=== PATIENT | male | born 1985 | race Two or more races ===

== ENCOUNTER 2018-01-26 16:44 | Emergency (ER) | payer BC ==
[~2018-01-26] VITALS: Ht 180.3 cm; Wt 86.2 kg
--- NOTE | 2018-01-26 17:00 | NUR ---
AAOX3, CAME TO ER C/O WORSENING RLQ ABDOMINAL PAIN X 2 DAYS, DENIES NAUSEA/VOMITING/DIARRHEA. SKIN IS WARM AND DRY. RESP IS EVEN AND UNLABORED WITH NAD NOTED. AWAITING MD FOR EVAL.
--- NOTE | 2018-01-26 17:10 | NUR ---
RENATA ENGINE ROOM HELPER AT BS FOR EVAL.
[2018-01-26] MEDS: IV NS 0.9% 1,000 ML BAG IV ONE (17:30)
[2018-01-26] MEDS: MORPHINE SULFATE INJ 2 MG/ML DISP.SYRIN IV ONE (17:30)
[2018-01-26] MEDS: ONDANSETRON HCL/PF 4 MG/2 ML VIAL IVP ONE (17:30)
[2018-01-26 17:31] LABS: BASOPHILS % (AUTO) 0.5 % (0.0-2.0); EOSINOPHILS % (AUTO) 3.4 % (0.0-6.0); HEMATOCRIT 37 % (39-51); HEMOGLOBIN 12.9 g/dL (13.5-17.5); LYMPHOCYTES # (AUTO) 2.6 /CMM (0.8-4.8); LYMPHOCYTES % (AUTO) 51.2 % (20.0-44.0); MEAN CORPUSCULAR HGB CONC 35 g/dl (31.0-36.0); MEAN CORPUSCULAR VOLUME 85 fL (80-96); MONOCYTES # (AUTO) 0.3 /CMM (0.1-1.30); MONOCYTES % (AUTO) 6.9 % (2.0-12.0); NEUTROPHILS # (AUTO) 1.9 /CMM (1.8-8.9); PLATELET COUNT (AUTO) 189 /CMM (150-450); RDW COEFFICIENT OF VARIATION 12.7 (11.5-15.0); RED BLOOD CELL COUNT(AUTO) 4.37 MIL/uL (4.5-6.0)
[2018-01-26 17:46] LABS: ALBUMIN 3.8 g/dL (3.4-5.0); BILIRUBIN,DIRECT 0.4 mg/dL (0.0-0.2); BILIRUBIN,TOTAL 2.3 mg/dL (0.2-1.0); CREATININE 0.9 mg/dL (0.6-1.3); POTASSIUM 3.9 mmol/L (3.5-5.1); TOTAL PROTEIN, SERUM 7.5 g/dL (6.4-8.2)
[2018-01-26 17:56] LABS: APPEARANCE,URINE Clear (CLEAR); BILIRUBIN,URINE Negative (NEGATIVE); BLOOD, URINE Negative Ery/uL (NEGATIVE); COLOR,URINE Yellow (YELLOW); KETONES,URINE Negative (NEGATIVE); LEUKOCYTE ESTERASE ,URINE Negative (NEGATIVE); NITRITE, URINE Negative (NEGATIVE); PROTEIN,URINE Negative (NEGATIVE); UGLUCOSE Negative (NEGATIVE); UROBILINOGEN,URINE 0.2 EU/dL (0.2)
[2018-01-26] MEDS ORDERED: IOHEXOL-300 100 ML VIAL IV ONE (18:45)
--- NOTE | 2018-01-26 18:57 | NUR ---
PATIENT CAME BACK FROM CT.
--- NOTE | 2018-01-26 19:04 | NUR ---
REPORT GIVEN TO DIANA MILTON FOR [facility].
--- NOTE | 2018-01-26 19:16 | NUR ---
RECEIVED REPORT FROM DIANA MARIE FOR [facility]. PT APPEARS COMFORTABLE. GIRLFRIEND AT BEDSIDE
--- NOTE | 2018-01-26 19:36 | NUR ---
IV removed. Catheter intact and site benign. Pressure and 4x4 applied to site. No bleeding noted. Patient discharged to home in stable condition. Written and verbal after care instructions given. Patient verbalizes understanding of instruction. ambulatory with a steady gait
[2018-01-26 19:37] VITALS: BP 115/62
== END 2018-01-26 19:38 | disposition home or self-care (01) ==
LOC: ER 16:46
DX: R10.31 Right lower quadrant pain (principal); R17 Unspecified jaundice; F10.10 Alcohol abuse, uncomplicated; Z98.890 Other specified postprocedural states
CPT/HCPCS: 36415; 76705-TC; 80048-TC; 80076-TC; 81000-TC; 83690-TC; 85025-TC; 85730-TC; A4606; J7030; Q9967; Z7610

== ENCOUNTER 2022-01-17 17:19 | Emergency (ER) | payer BC ==
[~2022-01-17] VITALS: Ht 180.3 cm; Wt 91.6 kg
--- NOTE | 2022-01-17 17:40 | NUR ---
To ER bed 11, c/o epigastric pain since this morning around 1130 am, +nausea, happened last week also but went away. This time the pain felt like "i was going to pass out". Pain level upon assessment at 09/03. aaox3, breathing even and non labored.
--- NOTE | 2022-01-17 17:42 | NUR ---
URINE SPECIMEN COLLECTED AND SENT TO LAB.
[2022-01-17 18:29] LABS: BILIRUBIN,URINE NEGATIVE (NEGATIVE); COLOR,URINE YELLOW (YELLOW); LEUKOCYTE ESTERASE ,URINE NEGATIVE (NEGATIVE); NITRITE, URINE NEGATIVE (NEGATIVE); PROTEIN,URINE NEGATIVE (NEGATIVE); UGLUCOSE NEGATIVE (NEGATIVE); UROBILINOGEN,URINE 0.2 EU/dL (0.2)
[2022-01-17 18:30] LABS: BASOPHILS % (AUTO) 0.3 % (0.0-2.0); EOSINOPHILS % (AUTO) 6.6 % (0.0-6.0); HEMATOCRIT 48 % (39-51); HEMOGLOBIN 15.9 g/dL (13.5-17.5); LYMPHOCYTES # (AUTO) 2.7 K/uL (0.8-4.8); LYMPHOCYTES % (AUTO) 32.6 % (20.0-44.0); MEAN CORPUSCULAR HGB CONC 33 g/dl (31.0-36.0); MEAN CORPUSCULAR VOLUME 87 fL (80-96); MONOCYTES # (AUTO) 0.4 K/uL (0.1-1.30); MONOCYTES % (AUTO) 5.1 % (2.0-12.0); NEUTROPHILS # (AUTO) 4.6 K/uL (1.8-8.9); NEUTROPHILS % (AUTO) 55.4 % (43.0-81.0); PLATELET COUNT (AUTO) 224 K/uL (150-450); RED BLOOD CELL COUNT(AUTO) 5.52 MIL/uL (4.5-6.0); WHITE BLOOD COUNT (AUTO) 8.3 K/uL (4.3-11.0)
[2022-01-17 18:50] LABS: CALCIUM, SERUM 9.1 mg/dL (8.5-10.1); POTASSIUM 3.6 mmol/L (3.5-5.1)
[2022-01-17 18:55] LABS: ALBUMIN 4.4 g/dL (3.4-5.0); BILIRUBIN,DIRECT 0.2 mg/dL (0.0-0.2); BILIRUBIN,TOTAL 1.5 mg/dL (0.2-1.0); TOTAL PROTEIN, SERUM 7.7 g/dL (6.4-8.2)
[2022-01-17 19:59] VITALS: BP 135/70
--- NOTE | 2022-01-17 19:59 | NUR ---
Patient discharged to home in stable condition. Written and verbal after care instructions given. Patient verbalizes understanding of instruction.
== END 2022-01-17 19:59 | disposition home or self-care (01) ==
LOC: ER 17:30
DX: R10.13 Epigastric pain (principal); R11.0 Nausea
CPT/HCPCS: 36415; 80048-TC; 80076-TC; 83690-TC; 85025-TC; J7030

== ENCOUNTER 2022-05-07 07:59 | Emergency (ER) | payer BC ==
[~2022-05-07] VITALS: Ht 175.3 cm; Wt 90.7 kg
--- NOTE | 2022-05-07 08:39 | NUR ---
BIBS C/O ABDOMINAL PAIN X1 DAY STARTED ON THE RIGHT SIDE AND STATED IT IS MOSTLY DIFFUSED. PT STATED PAIN IS 5/10 ON PAIN SCALE. VITALS ARE WITHIN NORMAL LIMITS. AWAITING MD ORDERS.
--- NOTE | 2022-05-07 08:52 | NUR ---
URINE COLLECTED AND SENT
[2022-05-07 09:49] LABS: BASOPHILS % (AUTO) 0.3 % (0.0-2.0); EOSINOPHILS % (AUTO) 2.1 % (0.0-6.0); HEMATOCRIT 42 % (39-51); LYMPHOCYTES % (AUTO) 25.6 % (20.0-44.0); MEAN CORPUSCULAR HGB CONC 34 g/dl (31.0-36.0); MEAN CORPUSCULAR VOLUME 86 fL (80-96); MONOCYTES # (AUTO) 0.4 K/uL (0.1-1.30); NEUTROPHILS # (AUTO) 5.2 K/uL (1.8-8.9); PLATELET COUNT (AUTO) 217 K/uL (150-450); RED BLOOD CELL COUNT(AUTO) 4.81 MIL/uL (4.5-6.0); WHITE BLOOD COUNT (AUTO) 7.8 K/uL (4.3-11.0)
[2022-05-07 09:57] LABS: BILIRUBIN,URINE SMALL (NEGATIVE); COLOR,URINE DARK YELLOW (YELLOW); LEUKOCYTE ESTERASE ,URINE NEGATIVE (NEGATIVE); NITRITE, URINE NEGATIVE (NEGATIVE); PROTEIN,URINE NEGATIVE (NEGATIVE); UGLUCOSE NEGATIVE (NEGATIVE)
[2022-05-07] MEDS ORDERED: IOHEXOL-300 100 ML VIAL IV ONE (09:59)
[2022-05-07] MEDS ORDERED: IV NS 0.9% 250 ML IV ONE (09:59)
[2022-05-07] MEDS ORDERED: CT SWABBABLE VALVE TRANS SET 1 EA INFUS.SET MC ONE (09:59)
[2022-05-07 10:00] LABS: BILIRUBIN,DIRECT 0.3 mg/dL (0.0-0.2); BILIRUBIN,TOTAL 1.9 mg/dL (0.2-1.0); CALCIUM, SERUM 8.9 mg/dL (8.5-10.1); POTASSIUM 3.6 mmol/L (3.5-5.1); TOTAL PROTEIN, SERUM 7.7 g/dL (6.4-8.2)
[2022-05-07] MEDS ORDERED: DICY10CA37 PO ×2 (10:33→10:59)
[2022-05-07] MEDS ORDERED: SIME80TA15 PO ×2 (10:33→10:59)
[2022-05-07 10:42] LABS: BACTERIA,URINE Few /HPF (None Seen); SQUAMOUS EPITHELIAL CELL,UR Rare /HPF (None Seen)
--- NOTE | 2022-05-07 11:10 | NUR ---
IV removed. Catheter intact and site benign. Pressure and 4x4 applied to site. No bleeding noted.Patient discharged to home in stable condition. Written and verbal after care instructions given. Patient verbalizes understanding of instruction.
[2022-05-07 11:11] VITALS: BP 120/70
== END 2022-05-07 11:10 | disposition home or self-care (01) ==
LOC: ER 08:01
DX: R10.31 Right lower quadrant pain (principal); R19.7 Diarrhea, unspecified; Z98.890 Other specified postprocedural states
CPT/HCPCS: 99285; 74177; 85025; 80048; 87086; 83690; 80076; 81001; 36415; J7050; Q9967